=== PATIENT | male | born 1985 | race Caucasian/White ===

== ENCOUNTER 2017-06-09 11:05 | Emergency (ER) | payer MEDICARE, MEDICAID ==
--- NOTE | 2017-06-09 12:11 | RAD ---
INDICATION: Right calf pain mild edema. COMPARISON: There are no prior studies available for comparison. TECHNIQUE: Multiple real-time, color flow and Doppler tracings of the right lower extremity were obtained. FINDINGS: The common femoral, femoral, profunda femoral and popliteal veins all demonstrate normal compressibility, augmentation with compression and phasic response with respiration. The posterior tibial and peroneal veins demonstrate normal compressibility and augmentation with compression. IMPRESSION: NO EVIDENCE FOR DEEP VENOUS THROMBOSIS.
--- NOTE | 2017-06-09 12:37 | ED ---
Lower Extremity - HPI Summary HPI Summary: Pt here w/ Rt LE pain x 1 week. Atraumatic. Only has pain w/ walking/weight bearing - no pain w/ touch or moving ankle. Mild swelling. Has some scabbed spots in the area near his ankle of unknown origin - no itching, swelling or pain. Denies redness, streaking, fever, chills, chest pain, SOB. Saw PCP this morning who recommended coming for DVT study. Pt denies h/o clotting issues however he smokes, is sedentary and does not think he's been drinking enough water lately. Denies recent excessive sweating, vomiting or diarrhea. NOTE: pt does report he does "weird things" in his sleep - could have strained a muscle here and not known it. - History of Current Complaint Chief Complaint: EDExtremityLower Stated Complaint: RT LEG PAIN Time Seen by Provider: 06/09/17 11:30 Hx Obtained From: Patient Pain Intensity: 1 - Allergies/Home Medications Allergies/Adverse Reactions: Allergies Allergy/AdvReac Type Severity Reaction Status Date / Time No Known Allergies Allergy Verified 06/09/17 11:37 PMH/Surg Hx/FS Hx/Imm Hx Previously Healthy: Yes Endocrine/Hematology History: Denies: Hx Anticoagulant Therapy, Hx Blood Disorders, Hx Diabetes, Hx Thyroid Disease, Hx Anemia, Hx Unexplained Bleeding, Hx Coagulopothy Cardiovascular History: Denies: Hx Deep Vein Thrombosis Neurological History: Reports: Other Neuro Impairments/Disorders - chronic fatigue syndrome Infectious Disease History: No Infectious Disease History: Denies: Traveled Outside the [place] in Last 30 Days - Family History Known Family History: Positive: Other - half sister w/ Factor V leiden (d/o is not on his side of family) - Social History Occupation: Disabled Lives: Alone Alcohol Use: None Hx Substance Use: No Substance Use Type: Reports: None Hx Tobacco Use: Yes Smoking Status (MU): Current Every Day Smoker Review of Systems Constitutional: Negative Positive: Fatigue - chronic fatigue syndrome - unchanged. Negative: Fever, Chills Cardiovascular: Negative Negative: Palpitations, Chest Pain Respiratory: Negative Negative: Shortness Of Breath, Cough Gastrointestinal: Negative Negative: Abdominal Pain, Vomiting, Diarrhea, Nausea Positive: no symptoms reported Musculoskeletal: Other - see HPI Skin: Other - see HPI Neurological: Negative Positive: Anxious All Other Systems Reviewed And Are Negative: Yes Physical Exam Triage Information Reviewed: Yes Vital Signs On Initial Exam: Initial Vitals Temp Pulse Resp BP Pulse Ox 96.2 F 119 19 165/103 98 06/09/17 11:12 06/09/17 11:12 06/09/17 11:12 06/09/17 11:12 06/09/17 11:12 Vital Signs Reviewed: Yes Appearance: Positive: No Pain Distress - subtle tremor/shaking, appears anxious , Obese Skin: Positive: Warm, Dry - cluster of pinpoint scabs over Rt distal anterior tibial region - no underlying erythema or edema - no streaking Head/Face: Positive: Normal Head/Face Inspection Eyes: Positive: EOMI ENT: Positive: Hearing grossly normal Respiratory/Lung Sounds: Positive: Breath Sounds Present Cardiovascular: Positive: Pulses are Symmetrical in both Upper and Lower Extremities, Leg Edema Right - posibly mild edema - gastrocnemius definition is less noticable flexed on Rt vs. Lt - (-) Basil's sign, no erythema. Negative: Leg Edema Left Musculoskeletal: Positive: Normal, Strength/ROM Intact Neurological: Positive: Normal, Sensory/Motor Intact, Alert, Oriented to Person Place, Time, CN Intact II-III Psychiatric: Positive: Anxious Diagnostics - Vital Signs Vital Signs Temp Pulse Resp BP Pulse Ox 06/09/17 11:12 96.2 F 119 19 165/103 98 - Laboratory Lab Statement: Any lab studies that have been ordered have been reviewed, and results considered in the medical decision making process. Lower Extremity Course/Dx - Course Course Of Treatment: No dVT, no clinical s/sx of cellulitis - advise RICE, gentle stretches and f/u w/ PCP. Reviewed danger s/sx of when to return to ED. Pt agrees w/ plan. - Diagnoses Provider Diagnoses: Right calf pain Discharge - Discharge Plan Condition: Stable Disposition: HOME Patient Education Materials: Leg Pain (ED) Referrals: Eliud Dalton MD [Primary Care Provider] - Additional Instructions: Rest, ice, compress w/ PAUL wrap for comfort and elevate You may take ibuprofen with food as needed for pain, swelling Gentle stretches to avoid stiffness Follow-up with PCP if symptoms persist or worsen *If leg swells and/or you develop redness, fever, chest pain, shortness of breath, return to ED
[2017-06-09 12:58] VITALS: BP 124/85
== END 2017-06-09 12:58 | disposition home or self-care (01) ==
LOC: ED 11:05
DX: M79.661 Pain in right lower leg (principal); F17.200 Nicotine dependence, unspecified, uncomplicated
CPT/HCPCS: 99281

== ENCOUNTER 2017-06-13 10:07 | Emergency (ER) | payer MEDICARE, MEDICAID ==
--- NOTE | 2017-06-13 13:31 | RAD ---
Indication: Bruising behind the RIGHT ankle. No preceding injury. Comparison: No relevant prior exams available on the [facility] for comparison. Technique: AP, mortise, and lateral views RIGHT ankle. Report: Normal articular alignment and preserved joint spaces. Negative for fracture or osteochondral lesion. No suggestion of talocrural joint effusion. Soft tissue swelling over the medial and lateral malleoli and visualized lower leg through mid foot. No conspicuous foreign body or subcutaneous emphysema. IMPRESSION: Soft tissue swelling without additional finding.
--- NOTE | 2017-06-13 14:02 | RAD ---
INDICATION: Calf swelling and bruising. COMPARISON: Comparison is made with a right lower extremity venous duplex study from June 09, 2017. TECHNIQUE: Multiple real-time, color flow and Doppler tracings of the right lower extremity were obtained. FINDINGS: The common femoral, femoral, profunda femoral and popliteal veins all demonstrate normal compressibility, augmentation with compression and phasic response with respiration. The posterior tibial and peroneal veins demonstrate normal compressibility and augmentation with compression. IMPRESSION: NO EVIDENCE FOR DEEP VENOUS THROMBOSIS.
--- NOTE | 2017-06-13 14:09 | RAD ---
INDICATION: Calf muscle pain, bruising evaluate for tear. COMPARISON: Comparison is made with a prior x-ray study of the right ankle from June 13, 2017. TECHNIQUE: Multiple real-time images of the soft tissues of the right calf and ankle. FINDINGS: There is calf edema. No focal fluid collection or hematoma is seen. No focal muscle abnormality or tear is seen. IMPRESSION: SOFT TISSUE SWELLING NO FLUID COLLECTION OR MUSCLE TEAR IS SEEN. IF THE PATIENT'S SYMPTOMS PERSIST CONSIDER MR IMAGING.
[2017-06-13 14:28] LABS: Hematocrit 42 % (42-52); Hemoglobin 14.2 g/dl (14.0-18.0); Mean Corpuscular HGB Conc 34 g/dl (31-36); Mean Corpuscular Hemoglobin 27 pg (27-31); Mean Corpuscular Volume 78 fL (80-94); Mean Platelet Volume 7 um3 (7.4-10.4); Red Blood Count 5.33 10^6/ul (4.0-5.4); Red Cell Distribution Width 15 % (10.5-15); White Blood Count 9.4 10^3/ul (3.5-10.8)
[2017-06-13 14:45] LABS: Albumin 3.8 g/dL (3.2-5.2); BUN/Creatinine Ratio 15.8 (8-20); Calcium 9.3 mg/dL (8.6-10.3); EGFR African American 151.9 (>60); EGFR Non-African American 118.1 (>60); Globulin 4.3 g/dL (2-4); Potassium 3.6 mmol/L (3.5-5.0); Total Protein 8.1 g/dL (6.4-8.9)
[2017-06-13 15:21] VITALS: BP 135/88
--- NOTE | 2017-06-13 16:06 | ED ---
Lower Extremity - HPI Summary HPI Summary: 32 y/o male with ~ 1 week h//o R lower leg bruising, swelling, and pain. was seen at ER for similar symptoms, underwent DVT examinatino which was negative. Patient returns as sypmtoms have no improved. + MH history, + methadone for prior addiction, denies current drug use, denies alcohol use. no injury, trauma. no chest pain SOB. + ambulatory, pain in calf with moving ankle. no cool extremity. - History of Current Complaint Chief Complaint: EDExtremityLower Stated Complaint: RT LEG PAIN/SWELLING/BRUISING Time Seen by Provider: 06/13/17 11:54 Hx Obtained From: Patient Mechanism Of Injury: Unknown Onset of Pain: Immediate, Days Onset/Duration: Weeks Severity Initially: Moderate Severity Currently: Moderate Pain Intensity: 0 Pain Scale Used: 0-10 Numeric - Allergies/Home Medications Allergies/Adverse Reactions: Allergies Allergy/AdvReac Type Severity Reaction Status Date / Time No Known Allergies Allergy Verified 06/13/17 10:23 PMH/Surg Hx/FS Hx/Imm Hx Previously Healthy: Yes - MH history, h/o ETOh, drug abuse Endocrine/Hematology History: Denies: Hx Anticoagulant Therapy, Hx Blood Disorders, Hx Diabetes, Hx Thyroid Disease, Hx Anemia, Hx Unexplained Bleeding Cardiovascular History: Denies: Hx Deep Vein Thrombosis Neurological History: Reports: Other Neuro Impairments/Disorders - chronic fatigue syndrome - Immunization History Date of Tetanus Vaccine: utd Date of Influenza Vaccine: no Infectious Disease History: No Infectious Disease History: Denies: Traveled Outside the [place] in Last 30 Days - Family History Known Family History: Positive: Other - half sister w/ Factor V leiden (d/o is not on his side of family) - Social History Alcohol Use: Occasionally Hx Substance Use: No Substance Use Type: Reports: None Hx Tobacco Use: Yes Smoking Status (MU): Current Every Day Smoker Review of Systems Positive: Arthralgia, Myalgia, Decreased ROM, Edema Positive: Rash, Bruising All Other Systems Reviewed And Are Negative: Yes Physical Exam - Summary Physical Exam Summary: L LE normal with slight follicular rash noted over hair follicles, sparce. R leg with similar pattern, patient also has on upper arms, states has been present for months. R LE- + 1+ pitting edema from tib plat down to ankle with mild resolving ecchymosis from tib plat to ankle, yellowing coloration, with 3 areas of violacious ecchymosis, resolving, at b/l scanning tech inf mall. mall non-tender b/l, full ROM ankle, toes, knee R side. achillies tendon intact, tenderness with palpation of posterior calf, no joint effusion ankle, knee. PT, DP pulses 2+ b/l. Foot warm, sensation grossly intact. Vital Signs On Initial Exam: Initial Vitals Temp Pulse Resp BP Pulse Ox 98.1 F 91 20 134/100 96 06/13/17 10:15 06/13/17 10:15 06/13/17 10:15 06/13/17 10:15 06/13/17 10:15 Vital Signs Reviewed: Yes Appearance: Positive: Well-Appearing, No Pain Distress, Well-Nourished Skin: Positive: Warm, Skin Color Reflects Adequate Perfusion Head/Face: Positive: Normal Head/Face Inspection Respiratory/Lung Sounds: Positive: Clear to Auscultation, Breath Sounds Present Cardiovascular: Positive: Normal, RRR Musculoskeletal: Positive: Normal, Strength/ROM Intact Neurological: Positive: Sensory/Motor Intact, Alert, Oriented to Person Place, Time, Normal Gait Psychiatric: Positive: Normal - [place] Coma Scale Coma Scale Total: 15 Diagnostics - Vital Signs Vital Signs Temp Pulse Resp BP Pulse Ox 06/13/17 15:19 98 F 77 17 135/88 06/13/17 10:15 98.1 F 91 20 134/100 96 - Laboratory Lab Results: Lab Results 06/13/17 06/13/17 06/13/17 Range/Units 14:15 14:15 14:15 WBC 9.4 (3.5-10.8) 10^3/ul RBC 5.33 (4.0-5.4) 10^6/ul Hgb 14.2 (14.0-18.0) g/dl Hct 42 (42-52) % MCV 78 L (80-94) fL MCH 27 (27-31) pg MCHC 34 (31-36) g/dl RDW 15 (10.5-15) % Plt Count 297 (150-450) 10^3/ul MPV 7 L (7.4-10.4) um3 Neut % (Auto) 66.4 (38-83) % Lymph % (Auto) 27.5 (25-47) % Swain % (Auto) 3.9 (1-9) % Eos % (Auto) 1.0 (0-6) % Baso % (Auto) 1.2 (0-2) % Absolute Neuts (auto) 6.2 (1.5-7.7) 10^3/ul Absolute Lymphs (auto) 2.6 (1.0-4.8) 10^3/ul Absolute Monos (auto) 0.4 (0-0.8) 10^3/ul Absolute Eos (auto) 0.1 (0-0.6) 10^3/ul Absolute Basos (auto) 0.1 (0-0.2) 10^3/ul Absolute Nucleated RBC 0 10^3/ul Nucleated RBC % 0 INR (Anticoag Therapy) 1.12 H (0.89-1.11) Sodium 132 L (133-145) mmol/L Potassium 3.6 (3.5-5.0) mmol/L Chloride 99 L (101-111) mmol/L Carbon Dioxide 26 (22-32) mmol/L Anion Gap 7 (2-11) mmol/L BUN 12 (6-24) mg/dL Creatinine 0.76 (0.67-1.17) mg/dL Est GFR ( Amer) 151.9 (>60) Est GFR (Non-Af Amer) 118.1 (>60) BUN/Creatinine Ratio 15.8 (8-20) Glucose 111 H (70-100) mg/dL Calcium 9.3 (8.6-10.3) mg/dL Total Bilirubin 1.00 (0.2-1.0) mg/dL AST 55 H (13-39) U/L ALT 68 H (7-52) U/L Alkaline Phosphatase 95 (34-104) U/L Total Protein 8.1 (6.4-8.9) g/dL Albumin 3.8 (3.2-5.2) g/dL Globulin 4.3 H (2-4) g/dL Albumin/Globulin Ratio 0.9 L (1-3) Result Diagrams: 06/13/17 14:15 06/13/17 14:15 Lab Statement: Any lab studies that have been ordered have been reviewed, and results considered in the medical decision making process. Lower Extremity Course/Dx - Course Course Of Treatment: Repeat DVT study neg, US of calf without sign of tear, abnormalities, radiograph neg for fracture, blood work WNL for patient. Dr. Ervin consulted over the phone, no further ER work up. Dr. Bernstein and Dr. Garvey evaluated patient. - Diagnoses Differential Diagnosis/HQI/PQRI: Positive: Burn, Bursitis, Cellulitis, Sprain, Strain Provider Diagnoses: Lower extremity edema Discharge - Discharge Plan Condition: Good Disposition: HOME Patient Education Materials: Leg Edema (ED) Forms: *Work Release Referrals: Eliud Dalton MD [Primary Care Provider] - Additional Instructions: - Elevate leg as much as possible - Warm compresses to calf - Follow up with primary within 2-3 days for re-eval - tylenol as needed for pain - Follow up with Dr. Dalton
== END 2017-06-13 15:23 | disposition home or self-care (01) ==
LOC: ED 10:07
DX: R60.9 Edema, unspecified (principal); F17.200 Nicotine dependence, unspecified, uncomplicated
CPT/HCPCS: 36415; 80053; 85025; 85610; 99281

== ENCOUNTER 2017-10-16 11:53 | Emergency (ER) | payer MEDICARE, MEDICAID ==
[2017-10-16] MEDS ORDERED: EPINEPHrine SYR 0.1 MG/ML* (1:10,000) SYRINGE ONE (11:54)
[2017-10-16 12:06] VITALS: BP 0/0
--- NOTE | 2017-10-16 17:33 | ED ---
Fabio Tomlinson Angela, scribed for Wander Rangel MD on 10/16/17 at 1211 . HPI Cardiac - HPI Summary HPI Summary: ABC ALERT OVERHEARD AT 11:32, ETA 10 minutes. This pt is a 32 y/o male presenting to [facility] via EMS for unresponsiveness. EMS reports the down time is unknown. Per friend, pt is supposed to go to the methadone clinic, and is unknown if the pt went. EMS states the pt was given narcan, multiple doses of epinephrine, and bicarb. Pt was intubated en route. 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 HPI is limited due to level 5 caveat - pt is unresponsive. - History of Current Complaint Stated Complaint: ABC ALERT Hx Obtained From: Patient Hx From Patient Unobtainable Due To: Other - ABC alert Onset/Duration: Started Hours Ago, Still Present Timing: Lasting Hours Current Severity: Severe Pain Intensity: 0 Aggravating Factor(s): Nothing Alleviating Factor(s): Nothing - Allergy/Home Medications Allergies/Adverse Reactions: Allergies Allergy/AdvReac Type Severity Reaction Status Date / Time No Known Allergies Allergy Verified 06/13/17 10:23 PMH/Surg Hx/FS Hx/Imm Hx Endocrine/Hematology History: Denies: Hx Anticoagulant Therapy, Hx Blood Disorders, Hx Diabetes, Hx Thyroid Disease, Hx Anemia, Hx Unexplained Bleeding Cardiovascular History: Denies: Hx Deep Vein Thrombosis Neurological History: Reports: Other Neuro Impairments/Disorders - chronic fatigue syndrome - Immunization History Date of Tetanus Vaccine: utd Date of Influenza Vaccine: no Infectious Disease History: No Infectious Disease History: Denies: Traveled Outside the [place] in Last 30 Days - Family History Known Family History: Positive: Other - half sister w/ Factor V leiden (d/o is not on his side of family) - Social History Alcohol Use: Occasionally Hx Substance Use: No Substance Use Type: Reports: None Hx Tobacco Use: Yes Smoking Status (MU): Current Every Day Smoker Review of Systems - ROS Summary Review of Systems Summary: ROS is limited due to level 5 caveat - pt is unresponsive. Negative: Fever, Chills Neurological: Other - Pt is unresponsive All Other Systems Reviewed And Are Negative: No Physical Exam - Summary Physical Exam Summary: VITAL SIGNS: Reviewed. GENERAL: Patient is unresponsive. Patient was intubated by EMS. HEAD AND FACE: No signs of trauma. No ecchymosis, hematomas or skull depressions. EYES: Pupils fixed and dilated MOUTH: Oral mucosa dry NECK: Supple, trachea is midline, no adenopathy, no JVD, no carotid bruit. LUNGS: Breath sounds only with bagging CVS: No cardiac activity ABDOMEN: Soft, no bowel sounds EXTREMITIES: No edema noted. NEURO: Unresponsive SKIN: Dry and cold skin, pale skin Triage Information Reviewed: Yes Vital Signs On Initial Exam: Initial Vitals Temp Pulse Resp BP Pulse Ox 95.7 F 0 16 0/0 88 10/16/17 12:03 10/16/17 12:03 10/16/17 12:03 10/16/17 12:03 10/16/17 12:03 Vital Signs Reviewed: Yes Diagnostics - Vital Signs Vital Signs Temp Pulse Resp BP Pulse Ox 10/16/17 12:03 95.7 F 0 16 0/0 88 - Laboratory Lab Statement: Any lab studies that have been ordered have been reviewed, and results considered in the medical decision making process. Disposition - Course Course Of Treatment: Pt was found at about 11:00 by EMS at home. They report there was no pulses, no cardiac activity. EMS immediately started CPR. IO access was obtained. The pt was given multiple doses of epi, narcan and pt did not regain any vital signs. Pt was intubated and transported to the ED. At arrival the pt was with active CPR. The pt is unresponsive without any vital signs, no cardiac activity and no pulses. I used the ultrasound, that revealed there was no cardiac activity, confirmed by Dr. Martinez, from cardiology. We believe the pt is a DOA. At this point, with approval from Dr. Martinez and Dr. Caba, we stopped resuscitation measures. The pt was pronounced at 11:59. I gave Dr. Dalton, pt's PCP, a courtesy call regarding the pt's condition and that he was DOA. [12:27] I spoke with Dr. Turcios, medical reimbursement specialist, who recommends for us to try to talk to the pt's mother. I tried calling the mother s number but there was no answer. Kristina Gandhi, studio operations engineer in charge, will continue to call until they find the mother to let her know of the situation. Dr. Turcios also recommends to transfer the pt to the [facility] and he will also try to contact the pts mother. Kristina Gandhi, RN, spoke with the pts mother and was made aware of the event. The pt will be transferred to the [facility] at this time. - Diagnoses Provider Diagnoses: D.O.A. ( on arrival) During the Visit The Following Alert/Code Occurred: ABC Alert - at 11:32, ETA 10 minutes - Physician Notifications Discussed Care Of Patient With: Eliud Dalton Time Discussed With Above Provider: 12:13 Instructed by Provider To: Other - I gave Dr. Dalton, pt's PCP, a courtesy call regarding the pt's condition and that he was DOA. [12:27] I spoke with Dr. Turcios, medical reimbursement specialist, who recommends for us to try to talk to the pt's mother. He reports for the pt to be transferred to the [facility]. - Critical Care Time Critical Care Time: 75-104 min Discharge - Discharge Plan Condition: Disposition: Referrals: Eliud Dalton MD [Primary Care Provider] - The documentation as recorded by the Fabio tom Angela accurately reflects the service I personally performed and the decisions made by , Wander Rangel MD.
== END 2017-10-16 15:27 | disposition expired ==
LOC: ED 11:53
DX: F17.200 Nicotine dependence, unspecified, uncomplicated
CPT/HCPCS: 92950; 99283; J0171